=== PATIENT | male | born 1950 | race Caucasian/White ===

== ENCOUNTER → 2020-09-10 | Outpatient (CLI) | payer MEDICARE | END | disposition home or self-care (01) | LOC: LABWHC1 10:20 | PROVIDERS: ATTEND Ophthalmology | DX: Z01.818 Encounter for other preprocedural examination (principal); H02.832 Dermatochalasis of right lower eyelid | CPT/HCPCS: U0003; C9803 ==

== ENCOUNTER 2021-07-08 13:34 | Day surgery (SDC) | payer MEDICARE ==
[2021-07-03 15:28] VITALS: BMI 31.1
[~2021-07-08 13:34] MED LIST: LIDOCAINE 1% (10MG/ML) FOR IV START INTRADERMA PRN
[2021-07-08 14:11] VITALS: TEMP 97.7
[2021-07-08] MEDS: LACTATED RINGERS 1,000 ML IV SCH ×2 (14:26→15:18)
[2021-07-08] MEDS ORDERED: PROPOFOL 10 MG/ML 20 ML VIAL IV ONE (15:23)
[2021-07-08 15:46] VITALS: RESP 16
--- NOTE | 2021-07-08 15:49 | P.GSHP ---
History of Present Illness H&P Date: 07/08/21 Chief Complaint: Screening colonoscopy This a 70-year-old male who presents today for screening colonoscopy. Patient denies a significant complaints. Past Medical History Past Medical History: Hyperlipidemia, Prostate Disorder History of Any Multi-Drug Resistant Organisms: None Reported Past Surgical History: Orthopedic Surgery Additional Past Surgical History / Comment(s): LT KNEE SX. RT KNEE SCOPE. COLONOSCOPY Past Anesthesia/Blood Transfusion Reactions: No Reported Reaction Smoking Status: Never smoker - Past Family History Mother Family Medical History: No Reported History Medications and Allergies Home Medications Medication Instructions Recorded Confirmed Type Simvastatin [Zocor] 20 mg PO HS 07/03/21 07/08/21 History Tamsulosin [Flomax] 0.4 mg PO DAILY 07/03/21 07/08/21 History Allergies Allergy/AdvReac Type Severity Reaction Status Date / Time No Known Allergies Allergy Verified 07/08/21 14:00 Surgical - Exam Vital Signs Temp Pulse Resp BP Pulse Ox 97.7 F 88 18 158/80 96 07/08/21 14:09 07/08/21 14:09 07/08/21 14:09 07/08/21 14:09 07/08/21 14:09 - General well developed, well nourished, no distress - Eyes PERRL - ENT normal pinna - Neck no masses - Respiratory normal expansion - Cardiovascular Rhythm: regular - Abdomen Abdomen: soft, non tender Assessment and Plan Assessment: We'll perform screening colonoscopy
--- NOTE | 2021-07-08 15:50 | P.OP ---
Date of Procedure: 07/08/21 Preoperative Diagnosis: Screening colonoscopy Postoperative Diagnosis: Mild diverticulosis Procedure(s) Performed: Colonoscopy Anesthesia: MAC Surgeon: Mandeep Jay Pathology: none sent Condition: stable Disposition: PACU Description of Procedure: The patient's placed on the endoscopy table in the lateral position. C IV sedation. Digital rectal exam was performed which revealed no ebonized. Flexible colonoscope was then placed patient anus passed throughout the entire colon. The ileocecal valve was visualized. The cecum, ascending and transverse appeared normal. In the descending; was mild diverticulosis. Scope was brought back the rectum and this appeared normal. Scope withdrawn for patient.
[2021-07-08 16:10] VITALS: BP 127/76; PULSE 70
== END 2021-07-08 16:21 | disposition home or self-care (01) ==
LOC: ORWHC2ENDO 13:34
PROVIDERS: ATTEND Surgery
DX: Z12.11 Encounter for screening for malignant neoplasm of colon (principal); E78.5 Hyperlipidemia, unspecified
CPT/HCPCS: G0121; J2704